=== PATIENT | female | born 1990 | race Caucasian/White ===

== ENCOUNTER 2024-05-04 09:44 | Outpatient (CLI) | payer BC | END 2024-05-04 09:45 | disposition home or self-care (01) | LOC: CSHDTY/OP 09:44 | PROVIDERS: ATTEND Nurse Practitioner Family | DX: E66.812 Obesity, class 2 (principal); Z68.39 Body mass index [BMI] 39.0-39.9, adult | CPT/HCPCS: 97802 ==